=== PATIENT | female | born 1955 | race Caucasian/White ===

== ENCOUNTER → 2017-02-12 | Outpatient (CLI) | payer OTHER ==
[~2017-02-12] MED LIST: ACAI500C PO; ACET325T14 PO; ASCO100019 PO; ASPI-496 PO; CALC-141 PO; CHOL10002 PO; CHOL500050 PO; CITA10TA4 PO; CITA20TA5 PO; FENO130C6 PO; FENO160T PO; FISH1CAP PO; GLUC1CAP18 PO; MULT-658 PO; MULT-706 PO; RED600CA2 PO
== END | disposition home or self-care (01) ==
LOC: CFH 11:06
PROVIDERS: ATTEND Obstetrics & Gynecology
DX: Z12.31 Encounter for screening mammogram for malignant neoplasm of breast (principal)
CPT/HCPCS: 77063; G0202

== ENCOUNTER → 2018-02-11 | Outpatient (CLI) | payer OTHER ==
[~2018-02-11] MED LIST changes: -CITA20TA5 PO; +CITA20TA6 PO
== END | disposition home or self-care (01) ==
LOC: CFH 14:21
PROVIDERS: ATTEND Internal Medicine Hematology & Oncology
DX: M77.01 Medial epicondylitis, right elbow (principal); M25.721 Osteophyte, right elbow; C50.511 Malignant neoplasm of lower-outer quadrant of right female breast; M85.80 Other specified disorders of bone density and structure, unspecified site; N95.1 Menopausal and female climacteric states; I97.2 Postmastectomy lymphedema syndrome; Z17.0 Estrogen receptor positive status [ER+]

== ENCOUNTER 2018-12-08 11:56 | Outpatient (CLI) | payer OTHER | END 2018-12-08 23:59 | disposition home or self-care (01) | LOC: CFH 11:56 | PROVIDERS: ATTEND Internal Medicine Hematology & Oncology | DX: C50.511 Malignant neoplasm of lower-outer quadrant of right female breast (principal); Z17.0 Estrogen receptor positive status [ER+] | CPT/HCPCS: 71250 ==

== ENCOUNTER 2019-03-03 12:39 | Outpatient (CLI) | payer OTHER | END 2019-03-03 23:59 | disposition home or self-care (01) | LOC: CFH 12:39 | PROVIDERS: ATTEND Internal Medicine Hematology & Oncology | DX: Z12.31 Encounter for screening mammogram for malignant neoplasm of breast (principal); Z85.3 Personal history of malignant neoplasm of breast | CPT/HCPCS: 76641; 77063; 77067 ==

== ENCOUNTER → 2020-02-03 | Outpatient (CLI) | payer OTHER ==
[~2020-02-03] MED LIST changes: +FENO130C12 PO; -FENO130C6 PO
== END | disposition home or self-care (01) ==
LOC: CFH 12:50
PROVIDERS: ATTEND Internal Medicine Hematology & Oncology
DX: Z12.2 Encounter for screening for malignant neoplasm of respiratory organs (principal); C50.511 Malignant neoplasm of lower-outer quadrant of right female breast; I25.10 Atherosclerotic heart disease of native coronary artery without angina pectoris; R91.8 Other nonspecific abnormal finding of lung field; F17.200 Nicotine dependence, unspecified, uncomplicated; Z17.0 Estrogen receptor positive status [ER+]
CPT/HCPCS: G0297

== ENCOUNTER → 2020-03-07 | Outpatient (CLI) | payer OTHER | END | disposition home or self-care (01) | LOC: CFH 09:51 | PROVIDERS: ATTEND Internal Medicine Hematology & Oncology | DX: Z12.39 Encounter for other screening for malignant neoplasm of breast (principal); R92.2 Inconclusive mammogram; C50.511 Malignant neoplasm of lower-outer quadrant of right female breast; M85.89 Other specified disorders of bone density and structure, multiple sites; M85.88 Other specified disorders of bone density and structure, other site; Z17.0 Estrogen receptor positive status [ER+] | CPT/HCPCS: 76641; 77063; 77067; 77080 ==

== ENCOUNTER 2020-04-04 11:50 | Emergency (ER) | payer OTHER ==
[~2020-04-04] VITALS: Ht 152.4 cm; Wt 65.5 kg
--- NOTE | 2020-04-04 12:25 | NUR ---
applications administrator completed with L 5th hand digit wrapped with gauze dsg and noted swelling and bruising around finger. Pt states anterior surface has deep laceration present. MD and PA student arrived at this time for exam.
[2020-04-04] MEDS ORDERED: DIPH,PERTUSS(ACELL),TET VAC/PF 0.5 ML IM-VACC ONE ×2 (12:47→13:00)
[2020-04-04] MEDS ORDERED: CEFAZOLIN 1,000 MG IM ONE (13:00)
--- NOTE | 2020-04-04 13:00 | NUR ---
Pt back from radiology. MD and PA at bedside to discuss wound closure plan. Xray results pulled up at bedside for MD and found pt has open fx and will require OR for debridement and closure/repair. TDaP given with aseptic technique. Plan made with PA to do digital block, irrigation, and wound coverage before I undress pt into gown and start IV with abx.
[2020-04-04] MEDS ORDERED: CEFAZOLIN PMX 1GM/50ML 50 ML ONE (13:10)
[2020-04-04] MEDS ORDERED: BUPIVACAINE 0.25% ONE (13:15)
[2020-04-04] MEDS ORDERED: LIDOCAINE-MPF 1%, 2ML ONE (13:15)
[2020-04-04] MEDS ORDERED: LIDOCAINE-MPF 1%, 5ML ONE (13:20)
[2020-04-04 13:26] LABS: BASOPHILS % (AUTO) 1 % (0-1); EOSINOPHILS % (AUTO) 1 % (1-7); LYMPHOCYTES % (AUTO) 22 % (22-44); MEAN CORPUSCULAR HGB CONC 33.7 g/dL (32.4-35.8); MEAN PLATELET VOLUME 8.5 fL (7.4-10.4); MONOCYTES % (AUTO) 7 % (2-9); NEUTROPHILS % (AUTO) 70 % (42-75); PLATELET COUNT 211 x10^3/uL (130-400); RED BLOOD COUNT 4.48 x10^6/uL (3.82-5.3); RED CELL DISTRIBUTION WIDTH 12.9 % (9.6-15.2)
[2020-04-04] MEDS ORDERED: CEFAZOLIN PMX 1GM/50ML 50 ML IV ONE (13:30)
[2020-04-04] MEDS ORDERED: BUPIVACAINE 0.25% INFIL ONE (13:30)
[2020-04-04] MEDS ORDERED: SODIUM CHLORIDE FLUSH 10ML SYR IVF ONE (13:30)
[2020-04-04] MEDS ORDERED: LIDOCAINE 1%, 10ML INFIL ONE (13:30)
[2020-04-04 13:35] LABS: ALBUMIN 3.7 g/dL (3.4-5.0); ANION GAP 5 mmol/L (5-15); CALCIUM 9.1 mg/dL (8.5-10.1); CHLORIDE 109 mmol/L (98-107)
--- NOTE | 2020-04-04 13:50 | NUR ---
PA at bedside for block of digit and wound care. IV start and Ancef all at bedside awaiting PA completion of wound care.
[2020-04-04 13:53] LABS: MD NO
[2020-04-04 13:57] LABS: ALANINE AMINOTRANSFERASE 16 U/L (12-78); CREATININE 0.89 mg/dL (0.55-1.02)
[2020-04-04 13:59] LABS: ALKALINE PHOSPHATASE 40 U/L (45-117); BILIRUBIN,TOTAL 0.3 mg/dL (0.2-1.0); TOTAL PROTEIN 6.7 g/dL (6.4-8.2)
--- NOTE | 2020-04-04 14:31 | NUR ---
IV started and IV abx started at this time. Pt used restroom before procedures. L pinky finger with some bloody drng to gauze dsg noted.
--- NOTE | 2020-04-04 15:06 | NUR ---
Pt states continued non-reaction to Ancef gtt. Report given to ALLY Espinoza and care transferred.
[2020-04-04] MEDS ORDERED: CHLORHEXIDINE 15 ML UDC MM ONE (15:30)
[2020-04-04] MEDS ORDERED: LACTATED RINGERS 1,000 ML IV SCH (15:30)
--- NOTE | 2020-04-04 15:49 | NUR ---
Report called to pre-op
--- NOTE | 2020-04-04 16:25 | NUR ---
Pt resting in bed, talking on phone. Denies pain.
--- NOTE | 2020-04-04 16:56 | NUR ---
Pt requested picture of finger from Dr. Mendoza. Dr. Mendoza provided pt. picture of her pre-wrapped finger. Pt asking when they are going to OR. Called OR- DANA jallohkown. Updated pt.
--- NOTE | 2020-04-04 17:30 | NUR ---
Pt requesting pain meds, this RN requesting pain meds from Dr. Mendoza.
[2020-04-04] MEDS ORDERED: HYDROmorphone 1 MG/ML, 1ML INJ IV ONE (18:00)
[2020-04-04] MEDS ORDERED: HYDROmorphone 1 MG/ML, 1ML INJ ONE (18:01)
--- NOTE | 2020-04-04 18:14 | NUR ---
Internal medicine and this RN at bedside. Dilaudid given.
[2020-04-04] MEDS ORDERED: HYDROmorphone 2 MG/ML, 1ML IVPush PRN (18:30)
[2020-04-04] MEDS ORDERED: ONDANSETRON 2MG/ML, 2ML IVPush PRN ×2 (18:30→20:00)
--- NOTE | 2020-04-04 18:56 | NUR ---
LR running TKO. Pt reports pain /10 after 0.5mg dilaudid. OR called and said they are on their way down to get pt.
[2020-04-04 18:57] VITALS: BP 145/82
--- NOTE | 2020-04-04 19:00 | NUR ---
Pt being tranpsorted to pre-op.
[2020-04-04] MEDS ORDERED: FENTANYL PF 100 MCG/2ML ONE (19:20)
[2020-04-04] MEDS ORDERED: BUPIVACAINE/PF 0.25% ONE (19:25)
[2020-04-04] MEDS ORDERED: BUPIVACAINE/PF 0.5% ONE (19:25)
[2020-04-04] MEDS ORDERED: EPINEPHRINE 1 MG/ML, 1ML ONE (19:25)
[2020-04-04] MEDS ORDERED: ONDANSETRON 2MG/ML, 2ML ONE (19:40)
[2020-04-04] MEDS ORDERED: CEFAZOLIN 1,000 MG ONE (19:40)
[2020-04-04] MEDS ORDERED: PROPOFOL 10 MG/ML, 20ML ONE (19:40)
[2020-04-04] MEDS ORDERED: LORazepam 2 MG/ML, 1ML IVPush PRN (20:00)
[2020-04-04] MEDS ORDERED: ACETAMINOPHEN 325 MG TABLET PO PRN (20:00)
[2020-04-04] MEDS ORDERED: MEPERIDINE/PF 25MG/0.5ML IVPush PRN (20:00)
[2020-04-04] MEDS ORDERED: HYDROmorphone 1 MG/ML, 1ML INJ IVPush PRN (20:00)
[2020-04-04] MEDS ORDERED: FENTANYL PF 100 MCG/2ML IV PRN (20:00)
[2020-04-04] MEDS ORDERED: PROMETHAZINE 25 MG SUPP PR PRN (20:00)
[2020-04-04] MEDS ORDERED: OXYcodone 5 MG/5 ML ORAL.SOL UDC PO PRN (20:00)
[2020-04-04] MEDS ORDERED: PROMETHAZINE 25 MG/ML, 1ML IVPush PRN (20:00)
[2020-04-04] MEDS ORDERED: OXYcodone 5 MG/5 ML ORAL.SOL UDC ONE (20:01)
[2020-04-04] MEDS ORDERED: SODIUM CHLORIDE FLUSH 10ML SYR IVF SCH (21:00)
[2020-04-05] MEDS ORDERED: FENOFIBRATE 145 MG TABLET PO SCH (09:00)
[2020-04-05] MEDS ORDERED: CITALOPRAM 10 MG TABLET PO SCH (09:00)
== END 2020-04-04 13:24 ==
LOC: ED 13:24 → UNDOADMOB 18:20 → EDIP 18:20
DX: S62.637B Displaced fracture of distal phalanx of left little finger, initial encounter for open fracture (principal); Z20.822 Contact with and (suspected) exposure to COVID-19; E78.1 Pure hyperglyceridemia; M85.80 Other specified disorders of bone density and structure, unspecified site; Z72.0 Tobacco use; Z85.3 Personal history of malignant neoplasm of breast; Z88.0 Allergy status to penicillin; X58.XXXA Exposure to other specified factors, initial encounter; Y93.89 Activity, other specified; Y92.009 Unspecified place in unspecified non-institutional (private) residence as the place of occurrence of the external cause; Y99.8 Other external cause status
CPT/HCPCS: 26735; 36415; 73140; 76000; 80053; 85025; 87635; 90471; 90715; 93005; 96365; 96375; 99285; C1713; J0690; J1170; J2405; J2704; J3010; S0020; J0171